=== PATIENT | female | born 1995 | race Two or more races ===

== ENCOUNTER 2023-12-30 08:09 | Emergency (ER) | payer OTHER ==
[~2023-12-30] VITALS: Ht 162.6 cm; Wt 99.8 kg
[2023-12-30] MEDS ORDERED: SYNTHROID75 MCG PO (08:18)
[2023-12-30] MEDS ORDERED: RESTORIL7.5 MG PO (08:19)
[2023-12-30] MEDS ORDERED: CLONAZEPAM0.5 M1 PO (08:19)
[2023-12-30] MEDS ORDERED: EFFEXOR XR75 MG PO (08:19)
[2023-12-30] MEDS ORDERED: KETOROLAC TROMETHAMINE 60 MG VIAL IM STA (08:44)
[2023-12-30 09:17] LABS: HEMOGLOBIN 11.8 g/dL (12.0-15.00); MEAN CELL VOLUME 87.1 fL (80.00-100.00); MEAN CORPUSCULAR HEMOGLOBIN 29.4 pg (27.00-32.0); MEAN CORPUSCULAR HGB CONC 33.7 g/dl (32.0-36.0); PLATELET COUNT 263 K/uL (150-450); RED BLOOD COUNT 4.02 M/uL (4.00-6.00); RED CELL DISTRIBUTION WIDTH 13.3 % (11.5-14.5)
[2023-12-30 09:49] LABS: CALCIUM 9.1 mg/dL (8.5-10.1); CREATININE SERUM 0.77 mg/dL (0.55-1.02); GFR 88.63; POTASSIUM 3.85 mEq/L (3.5-5.1)
[2023-12-30 10:19] LABS: PH,URINE 6.5 (5.0-8.0); URINE APPEARANCE Clear; URINE BILIRRUBIN Negative (NEGATIVE); URINE BLOOD Negative; URINE COLOR Yellow; URINE GLUCOSE Negative (NEGATIVE); URINE LEUKOCYTE Negative; URINE NITRATE Negative; URINE PROTEIN Negative (NEGATIVE); URINE UROBILINOGEN 0.2 E.U./dl
[2023-12-30 10:20] LABS: URINE BACTERIA 174.9 uL (0.0-1933); URINE EPITHELIAL CELLS 6.3 uL (0.0-38.8); URINE RBC 4.1 uL (0.0-20.8)
[2023-12-30 10:23] LABS: URINE WBC 0.7 uL (0.0-23.2)
== END 2023-12-30 10:48 | disposition home or self-care (01) ==
LOC: ER 08:10
PROVIDERS: General Practice
DX: R50.9 Fever, unspecified (principal); L40.8 Other psoriasis; S13.4XXA Sprain of ligaments of cervical spine, initial encounter; Z20.822 Contact with and (suspected) exposure to COVID-19; M50.322 Other cervical disc degeneration at C5-C6 level